=== PATIENT | female | born 1975 | race Native Hawaiian/Other Pacific Islander ===

== ENCOUNTER → 2016-08-11 | Outpatient (CLI) | payer MEDICAID ==
[~2016-08-11] MED LIST: AKWA TEARS OIN3.5 GM TP; FISH OIL 1,0001 EAC3 PO; IRON325 M1 PO; MOTRIN-DPS800 MG PO; OXY IR DPS5 MG PO; PRENATAL VITAM1 EAC9 PO; TYLENOL EXTRA500 M1 PO
== END | disposition home or self-care (01) ==
LOC: RAD.S 13:30
DX: Z36 Encounter for antenatal screening of mother (principal); O36.8920 Maternal care for other specified fetal problems, second trimester, not applicable or unspecified; Z3A.22 22 weeks gestation of pregnancy